=== PATIENT | male | born 1945 | race African-American/Black ===

== ENCOUNTER 2020-06-13 17:52 | Emergency (ER) | payer MEDICARE, OTHER ==
[~2020-06-13] VITALS: Ht 182.9 cm; Wt 77.1 kg
[~2020-06-13 17:52] MED LIST: NKM
[2020-06-13 18:00] VITALS: BP 120/70
[2020-06-13] MEDS ORDERED: Fleet's Enema 133ml RECTAL ONE (18:00)
[2020-06-13] MEDS ORDERED: Lactulose 20gm/30ml UDC ORAL ONE (18:00)
--- NOTE | 2020-06-13 18:46 | Emergency Room Report ---
History of Present Illness General Chief Complaint: Constipation Source: Patient, EMS Present Illness HPI Patient transported by BLS. Complaints of dizziness and constipation. He feels the world spinning and also that he is about to pass out. He last moved his bowels 5 days ago. In addition he has been eating less and drinking less fluids. He denies any chest pain, palpitations or abdominal pain. He denies fevers or chills. He has had difficulty with constipation in the past. He denies passing any blood in his stool. The patient denies exposure to Covid positive contacts. No fevers, chills, sore throat, nausea, vomiting, diarrhea, dysuria, abdominal pain, shortness of breath, joint pain, rashes, depression, anxiety, visual changes, headache. Allergies: Coded Allergies: No Known Allergies (Unverified , 12/01/12) COVID-19 Screening Contact w/high risk pt: No Experienced COVID-19 symptoms?: No COVID-19 Testing performed GALLERY DIRECTOR: No Patient History Past Medical History: see triage record Social History: Reports: alcohol use - In the past Social History Narrative Assisted living Reviewed Nursing Documentation: PMH: Agreed; PSxH: Agreed Nursing Documentation-PMH Hx Cardiac Problems: Yes - LIVES [facility] Hx Hypertension: Yes Hx Cancer: No Hx Gastrointestinal Problems: No Hx Neurological Problems: Yes - DRINKING PROBLEM Hx Cerebrovascular Accident: No Hx Transient Ischemic Attacks: No Hx Dementia: No Hx Alzheimer's Disease: No Hx Parkinson's Disease: No Hx Meningitis: No Hx Encephalitis: No Hx Seizures: No Hx Epilepsy: No Hx Multiple Sclerosis: No Hx Cerebral Palsy: No Hx Amyotrophic Lat Sclerosis: No Hx [place] Syndrome: No Hx Paralysis: No Hx Peripheral Neuropathy: No Hx Spinal Cord Injury: No Hx Head Trauma: No Hx Traumatic Brain Injury: No Hx Memory Loss: No Hx Concentration Difficulty: Yes Hx Speech Problem: No Hx Tremors: Yes Hx Vertigo: No Hx Dizziness: Yes Hx Syncope: No Hx Headaches: Yes Hx Aphasia: No Hx Dysphasia: No Hx Numbness: No Hx Weakness: Yes - right leg Hx Neurologic Surgery: No Hx Brain Shunt: No Review of Systems All Other Systems: negative except mentioned in HPI Physical Exam Vital Signs Date Time Temp Pulse Resp B/P (MAP) Pulse Ox O2 Delivery O2 Flow Rate FiO2 06/13/20 17:52 98.6 68 16 120/70 (87) 96 Room Air Sp02 EP Interpretation: reviewed, normal General Appearance: well appearing, no apparent distress, GCS 15 Head: normocephalic Eyes: bilateral eye PERRL, bilateral eye Scleral Injection ENT: dry mucus membranes - Slightly Neck: supple Respiratory: lungs clear, normal breath sounds Cardiovascular #1: regular rate, rhythm Cardiovascular #2: 2+ radial (R) Gastrointestinal: normal inspection, non tender, soft, no mass Genitourinary: no CVA tenderness Musculoskeletal: back normal, normal range of motion, gait/station normal Neurologic: oriented - X2, grossly normal Psychiatric: mood/affect normal Skin: no rash, warm/dry, other - Bedbug crawling on patients with fell Medical Decision Making Diagnostic Impression: Primary Impression: Dehydration Additional Impressions: Near syncope Constipation Qualified Codes: K59.00 - Constipation, unspecified Bed bugs ER Course Patient presents with dizziness and constipation. Differential includes acute myocardial infarction, dehydration, electrolyte imbalance, constipation amongst others. Patient evaluated with EKG, chest x-ray, abdominal film and labs. Patient treated with IV hydration, lactulose and fleets enema. EKG without injury. Chest x-ray unremarkable. Abdominal film without obstruction but increased stool load. CBC normal. CMP with elevated BUN. Urinalysis normal. Patient with good results with fleets enema. Improved with IV hydration without dizziness. Discussed results with patient. Discussed treatment plan with patient. No apparent medical: emergency at this time. Patient stable for outpatient observation and treatment. Laboratory Tests Test 06/13/20 17:57 06/13/20 20:00 Urine Color Yellow Urine Appearance Clear Urine pH 5 (4.5-8.0) Urine Specific [place] 1.025 (1.005-1.035) Urine Protein 1+ (NEGATIVE) H Urine Glucose (UA) Negative (NEGATIVE) Urine Ketones Negative (NEGATIVE) Urine Blood Negative (NEGATIVE) Urine Nitrite Negative (NEGATIVE) Urine Bilirubin Negative (NEGATIVE) Urine Urobilinogen Normal MG/DL (0.0-1.0) Urine Leukocyte Esterase 1+ (NEGATIVE) H Urine RBC 0 /HPF (0 - 0) Urine WBC 0-2 /HPF (0 - 0) Urine Squamous Epithelial Cells Few /LPF (NONE/OCC) Urine Bacteria Few /HPF (NONE) Urine Coarse Granular Casts 0-2 /LPF (NONE) H White Blood Count 6.1 K/UL (4.8-10.8) Red Blood Count 3.96 M/UL (4.70-6.10) L Hemoglobin 13.5 G/DL (14.2-18.0) L Hematocrit 37.0 % (42.0-52.0) L Mean Corpuscular Volume 94 FL (80-99) Mean Corpuscular Hemoglobin 34.2 PG (27.0-31.0) H Mean Corpuscular Hemoglobin Concent 36.6 G/DL (32.0-36.0) H Red Cell Distribution Width 15.4 % (11.6-14.8) H Platelet Count 254 K/UL (150-450) Mean Platelet Volume 7.7 FL (6.5-10.1) Neutrophils (%) (Auto) 53.8 % (45.0-75.0) Lymphocytes (%) (Auto) 38.7 % (20.0-45.0) Monocytes (%) (Auto) 5.3 % (1.0-10.0) Eosinophils (%) (Auto) 1.3 % (0.0-3.0) Basophils (%) (Auto) 0.9 % (0.0-2.0) Prothrombin Time 10.1 SEC (9.30-11.50) Prothrombin Time INR 0.9 (0.9-1.1) Activated Partial Thromboplast Time 32 SEC (23-33) Sodium Level 142 MMOL/L (136-145) Potassium Level 4.1 MMOL/L (3.5-5.1) Chloride Level 106 MMOL/L (98-107) Carbon Dioxide Level 27 MMOL/L (21-32) Anion Gap 9 mmol/L (5-15) Blood Urea Nitrogen 34 mg/dL (7-18) H Creatinine 1.1 MG/DL (0.55-1.30) Estimated Glomerular Filtration Rate > 60 mL/min (>60) Glucose Level 100 MG/DL (74-106) Calcium Level 9.2 MG/DL (8.5-10.1) Total Bilirubin 0.4 MG/DL (0.2-1.0) Aspartate Amino Transferase (AST) 15 U/L (15-37) Alanine Aminotransferase (ALT) 27 U/L (12-78) Alkaline Phosphatase 85 U/L (46-116) Total Creatine Kinase 133 U/L (26-308) Troponin I 0.000 ng/mL (0.000-0.056) Total Protein 8.0 G/DL (6.4-8.2) Albumin 4.0 G/DL (3.4-5.0) Globulin 4.0 g/dL Albumin/Globulin Ratio 1.0 (1.0-2.7) Lipase 185 U/L (73-393) EKG Diagnostic Results Rate: normal Rhythm: NSR ST Segments: no acute changes - Nonspecific ST-T wave changes. PVC Rhythm Strip Diag. Results Rhythm: NSR, other - PVC rate 63 Chest X-Ray Diagnostic Results Chest X-Ray Diagnostic Results : Chest X-Ray Ordered: Yes # of Views/Limited/Complete: 1 View Indication: Other EP Interpretation: Yes Interpretation: no consolidation, no effusion, no pneumothorax Impression: No acute disease Electronically Signed by: Electronically signed by Hernandez Guzmán MD Other X-Ray Diagnostic Results Other X-Ray Diagnostic Results : X-Ray ordered: Abdomen # of Views/Limited Vs Complete: 1 View Indication: Other Interpretation: nonspecific bowel gas, no sbo, other - Increase stool load Impression: No acute disease Electronically Signed by: Electronically signed by Hernandez Guzmán MD Last Vital Signs Date Time Temp Pulse Resp B/P (MAP) Pulse Ox O2 Delivery O2 Flow Rate FiO2 06/14/20 00:15 98.6 76 16 125/73 96 Room Air Status: improved Disposition: HOME, SELF-CARE Condition: Improved Scripts Lactulose (LACTULOSE*) 20 Gm/30 Ml Solution 30 ML ORAL BID PRN for Constipation, #240 ML 1 Refill Prov: Hernandez Guzmán MD 06/13/20 Referrals: NOT CHOSEN RAYMOND/,REFERRING (PCP) Hernandez Guzmán MD Jun 13, 2020 18:46
[2020-06-13] MEDS ORDERED: Lactulose 20gm/30ml UDC ONE ×2 (20:14→20:17)
[2020-06-13] MEDS: Sodium Chloride 550 ML IV SCH ×2 (20:19→21:57)
[2020-06-13 20:53] LABS: ANION GAP 9 mmol/L (5-15); BLOOD UREA NITROGEN 34 mg/dL (7-18); CALCIUM 9.2 MG/DL (8.5-10.1); CARBON DIOXIDE 27 MMOL/L (21-32); CHLORIDE 106 MMOL/L (98-107); CREATININE 1.1 MG/DL (0.55-1.30); POTASSIUM 4.1 MMOL/L (3.5-5.1); SODIUM 142 MMOL/L (136-145)
[2020-06-13 20:57] LABS: INR 0.9 (0.9-1.1)
[2020-06-13 20:58] LABS: ALANINE AMINOTRANSFERASE 27 U/L (12-78); ALKALINE PHOSPHATASE 85 U/L (46-116); ASPARTATE AMINO TRANSFERASE 15 U/L (15-37); BILIRUBIN,TOTAL 0.4 MG/DL (0.2-1.0); CREATINE KINASE 133 U/L (26-308)
[2020-06-13 20:59] LABS: BASOPHILS % (AUTO) 0.9 % (0.0-2.0); EOSINOPHILS % (AUTO) 1.3 % (0.0-3.0); HEMOGLOBIN 13.5 G/DL (14.2-18.0); LYMPHOCYTES % (AUTO) 38.7 % (20.0-45.0); MEAN CORPUSCULAR VOLUME 94 FL (80-99); MONOCYTES % (AUTO) 5.3 % (1.0-10.0); NEUTROPHILS % (AUTO) 53.8 % (45.0-75.0); PLATELET COUNT 254 K/UL (150-450); RED BLOOD COUNT 3.96 M/UL (4.70-6.10); RED CELL DISTRIBUTION WIDTH 15.4 % (11.6-14.8); WHITE BLOOD COUNT 6.1 K/UL (4.8-10.8)
[2020-06-13 21:08] LABS: APPEARANCE,URINE CLEAR; BILIRUBIN, URINE NEGATIVE (NEGATIVE); GLUCOSE, URINE (UA) NEGATIVE (NEGATIVE); KETONES,URINE NEGATIVE (NEGATIVE); LEUKOCYTE ESTERASE ,URINE 1+ (NEGATIVE); NITRITE,URINE NEGATIVE (NEGATIVE); PH,URINE 5 (4.5-8.0); PROTEIN,URINE 1+ (NEGATIVE); UROBILINOGEN,URINE NORMAL MG/DL (0.0-1.0)
[2020-06-13 21:18] LABS: COLOR,URINE YELLOW
[2020-06-13] MEDS ORDERED: LACTULOSE20 GM/301 ORAL (22:44)
[2020-06-14 00:15] VITALS: BP 125/73
--- NOTE | 2020-06-14 10:54 | Diagnostic Imaging Report ---
Indication: Chest pain Technique: XRAY Chest 1v Comparison: None Findings: Heart size and mediastinal contours are within normal limits for AP technique. Atherosclerotic calcification is noted in the aortic arch. There is no focal airspace consolidation, pneumothorax or pleural effusion. There are degenerative changes in the spine. Osseous structures demonstrate no acute abnormality. Impression: No radiographic evidence of acute cardiopulmonary disease.
--- NOTE | 2020-06-14 10:56 | Diagnostic Imaging Report ---
Indication: Abdominal pain, constipation Technique: XRAY Abdomen 1v Comparison: None Findings: No differential air-fluid level seen to suggest small bowel obstruction. No suspicious free intraperitoneal air. Mild to moderate retained stool noted in the colon. No acute osseous abnormality. Impression: No radiographic evidence to suggest small bowel obstruction. Mild to moderate retained stool in the colon.
== END 2020-06-14 00:15 | disposition home or self-care (01) ==
LOC: EDBD 17:52 → EMR 18:34
DX: E86.0 Dehydration (principal); R55 Syncope and collapse; K59.00 Constipation, unspecified; B88.8 Other specified infestations; I11.9 Hypertensive heart disease without heart failure; Z72.89 Other problems related to lifestyle
CPT/HCPCS: 36415; 71045; 74018; 80053; 81003; 82550; 83690; 84484; 85025; 85610; 85730; 93005; 96360; 96361; 99284